=== PATIENT | female | born 1995 | race African-American/Black ===

== ENCOUNTER 2018-03-19 19:12 | Emergency (ER) | payer BC ==
[~2018-03-19] VITALS: Ht 172.7 cm; Wt 86.2 kg
[2018-03-19 19:22] VITALS: BP 110/64
--- NOTE | 2018-03-19 19:24 | ED.ADGEN ---
Adult General Chief Complaint Chief Complaint ".. My Ten month old Salvador... it stands for give peace.. stuck in finger in my eye yesterday... and it still hurts and watering... " HPI HPI Patient is a 23 year old female who presents with above hx and complaints Lt. eye injury by her 10 month old son. Patient has obvious abrasion of cornea and some conjunctiva injection. There is some limbus injection at 6:00 on iris at this site of abrasion. No marked visual changes noted (see nursing visual acuity). Patient does not remember last tetanus. There is oozing uptake of the abrasion. She denies any history of immunosuppression. No recent travel. No specific ill contacts. Review of Systems Review of Systems Constitutional: Denies fever or chills [] Eyes: Denies change in visual acuity, left eye pain as per history of present illness HENT: Denies nasal congestion or sore throat [] Respiratory: Denies cough or shortness of breath [] Cardiovascular: No additional information not addressed in HPI [] GI: Denies abdominal pain, nausea, vomiting, bloody stools or diarrhea [] : Denies dysuria or hematuria [] Musculoskeletal: Denies back pain or joint pain [] Integument: Denies rash or skin lesions [] Neurologic: Denies headache, focal weakness or sensory changes [] Endocrine: Denies polyuria or polydipsia [] All other systems were reviewed and found to be within normal limits, except as documented in this note. Family History Family History Noncontributory Current Medications Current Medications Current Medications Medications (Trade) Dose Ordered Sig/Julieta Start Time Stop Time Status Last Admin Dose Admin Erythromycin (Romycin) 0.25 inch 1X ONCE 03/19/18 19:45 03/19/18 19:55 DC 03/19/18 20:04 0.25 INCH Fluorescein Sodium (Ful-Connie 1mg) 1 strip 1X ONCE 03/19/18 19:45 03/19/18 19:55 DC 03/19/18 20:04 1 STRIP Oxycodone/ Acetaminophen (Percocet 5/325) 2 tab 1X ONCE 03/19/18 19:45 03/19/18 19:55 DC 03/19/18 20:01 2 TAB Tetanus/ Diphtheria Toxoids Adsorbed (Tenivac Vial) 0.5 ml ONCE ONCE 03/19/18 19:45 03/19/18 19:55 DC 03/19/18 20:02 0.5 ML Tetracaine HCl (Tetracaine) 1 drop 1X ONCE 03/19/18 19:45 03/19/18 19:55 DC 03/19/18 20:03 1 DROP Allergies Allergies Allergies Coded Allergies Type Severity Reaction Last Updated Verified No Known Allergies Allergy Unknown 03/19/18 Yes Physical Exam Physical Exam Constitutional: Well developed, well nourished, no acute distress, non-toxic appearance. [] HENT: Normocephalic, atraumatic, bilateral external ears normal, oropharynx moist, no oral exudates, nose normal. [] Eyes: PERRLA, EOMI, conjunctiva normal, no discharge. Except findings as per history of present illness. Neck: Normal range of motion, no tenderness, supple, no stridor. [] Cardiovascular:Heart rate regular rhythm, no murmur [] Lungs & Thorax: Bilateral breath sounds clear to auscultation [] Abdomen: Bowel sounds normal, soft, no tenderness, no masses, no pulsatile masses. [] Skin: Warm, dry, no erythema, no rash. [] Back: No tenderness, no CVA tenderness. [] Extremities: No tenderness, no cyanosis, no clubbing, ROM intact, no edema. [] Neurologic: Alert and oriented X 3, normal motor function, normal sensory function, no focal deficits noted. [] Psychologic: Affect anxious, judgement normal, mood normal. [] Current Patient Data Vital Signs Vital Signs Date Time Temp Pulse Resp B/P (MAP) Pulse Ox O2 Delivery O2 Flow Rate FiO2 03/19/18 20:01 12 Room Air 03/19/18 19:22 98.3 68 100 EKG EKG [] Radiology/Procedures Radiology/Procedures [] Course & Med Decision Making Course & Med Decision Making Pertinent Labs and Imaging studies reviewed. (See chart for details) Reason take ibuprofen and Tylenol for discomfort. Patient apply a very small amount of erythromycin ointment to left eye 4 times a day. Patient follow-up ophthalmology. Patient return of any concerns or marked changes in visual acuity or injection or eye. [] Final Impression Final Impression 1. Lt. eye[]abrasion-cornea Dragon Disclaimer Dragon Disclaimer This electronic medical record was generated, in whole or in part, using a voice recognition dictation system. JODEE MACHADO MD Mar 19, 2018 19:24
[2018-03-19] MEDS ORDERED: oxyCODONE/APAP 5/325 1 TAB TABLET PO ONE (19:45)
[2018-03-19] MEDS ORDERED: FLUORESCEIN 1MG EYE STRIP. OD ONE (19:45)
[2018-03-19] MEDS ORDERED: ERYTHROMYCIN 0.5% OPHTH OINTMENT 1GM TUBE. OS ONE (19:45)
[2018-03-19] MEDS ORDERED: TETRACAINE 0.5% OPHTH SOLUTION 4ML BOTTLE. OS ONE (19:45)
[2018-03-19] MEDS ORDERED: TETANUS AND DIPHTHERIA TOX/PF 0.5 ML VIAL. VAX IM ONE (19:45)
== END 2018-03-19 20:15 | disposition home or self-care (01) ==
LOC: ER 19:12
DX: S05.02XA Injury of conjunctiva and corneal abrasion without foreign body, left eye, initial encounter (principal); W50.0XXA Accidental hit or strike by another person, initial encounter; Y93.89 Activity, other specified; Y92.89 Other specified places as the place of occurrence of the external cause; Y99.8 Other external cause status
CPT/HCPCS: 90471; 90714; 99284-25